=== PATIENT | female | born 1995 | race African-American/Black ===

== ENCOUNTER 2016-09-27 00:31 | Emergency (ER) | payer BC ==
[~2016-09-27] VITALS: Ht 157.5 cm; Wt 52.3 kg
[2016-09-27 01:06] VITALS: BP 112/68
== END 2016-09-27 01:25 | disposition home or self-care (01) ==
LOC: EMS 00:33
DX: H66.93 Otitis media, unspecified, bilateral (principal)
CPT/HCPCS: 99281; 99283